=== PATIENT | male | born 1985 | race Caucasian/White ===

== ENCOUNTER 2018-12-13 21:21 | Emergency (ER) | payer OTHER ==
[~2018-12-13] VITALS: Ht 167.6 cm; Wt 77.1 kg
[2018-12-13 21:56] VITALS: BP 138/91
[2018-12-13] MEDS ORDERED: PENICILLIN V P500 MG PO (22:10)
[2018-12-13] MEDS ORDERED: IBUPROFEN 400400 M2 PO (22:10)
== END 2018-12-13 22:42 | disposition home or self-care (01) ==
LOC: ER 21:21
DX: K08.89 Other specified disorders of teeth and supporting structures (principal)